=== PATIENT | female | born 1970 | race Caucasian/White ===

== ENCOUNTER 2021-12-12 12:24 | Emergency (ER) | payer OTHER, SELFPAY ==
--- NOTE | ~2021-12-12 | CT_ITS ---
EXAMINATION: CT abdomen pelvis w con DATE: 12/12/2021 15:17 INDICATION: Right upper quadrant abdominal pain. TECHNIQUE: Computed tomography (CT) of the abdomen and pelvis was performed with 100 mL Omnipaque-350 intravenous contrast. Automated exposure control and iterative reconstruction technique were employe d. The dose-length product was 1420.99 mGy-cm. COMPARISON: None FINDINGS: Lung bases are clear. Small sliding-type hiatal hernia. There is mural calcification at the fundus of the gallbladder with more peripheral small phrygian cap. There is altered diffuse irregular wall thi ckening of the gallbladder which is nondistended and there is no significant pericholecystic inflamma tory stranding. Constellation of findings would favor chronic cholecystitis. There is ill-defined dec reased hepatic attenuation along the gallbladder fossa which could represent either focal fat or wes a/inflammation related to the adjacent gallbladder. Spleen, pancreas, bilateral adrenal glands and ki dneys are normal. The appendix is not visualized. No pericecal inflammatory change to suggest acute a ppendicitis. Diffuse mild fatty infiltration of the colonic wall likely related to body habitus. No b owel obstruction. Bladder, anteverted uterus and bilateral adnexa are unremarkable. No free intraperi toneal gas or fluid. No pathologically enlarged abdominal or pelvic lymphadenopathy. Chronic mild ant erior wedging at T11. Mild to moderate lower thoracic and moderate to severe lumbosacral spondylosis with minimal intervening lumbar spondylosis. IMPRESSION: 1. Relatively diffuse irregular wall thickening as well as some mural calcification of the nondilated gallbladder/without surrounding pericholecystic inflammatory stranding which would be most consisten t with chronic cholecystitis. Reviewed, dictated and finalized at location B. IMPRESSION: 1. Relatively diffuse irregular wall thickening as well as some mural calcifica tion of the nondilated gallbladder/without surrounding pericholecystic inflamma tory stranding which would be most consistent with chronic cholecystitis.
[2021-12-12 12:51] VITALS: BP 161/109; PULSE 79; RESP 17; TEMP 37.2; O2SAT 100
[2021-12-12 14:07] VITALS: BP 161/112; PULSE 83; RESP 18; O2SAT 99
[2021-12-12 14:27] LABS: Appearance Urine Clear (Clear); Bilirubin Urine Negative (Negative); Blood Urine Trace-lysed (Negative); Color Urine Yellow (Yellow); Glucose Urine UA Negative (Negative); Ketones Urine Negative (Negative); Leukocyte Esterase Ur Negative LEU/UL (Negative); Nitrate Urine Negative (Negative); Protein Urine Negative (Negative); Urobilinogen Urine 0.2 mg/dL (<2.0); pH Urine 5.5 (5.0-9.0)
[2021-12-12 14:31] LABS: Mucus Urine Rare /lpf; RBC Urine 0-2 /hpf (0-2); Squamous Epithelial Cell Urine Few /hpf (Few); WBC Urine 0-3 /hpf
[2021-12-12 14:32] LABS: Basophils Absolute Auto 0.1 K/mm3 (0.0-0.1); Basophils Percent Auto 0.5 % (0.2-1.2); Eosinophils Absolute Auto 0.1 K/mm3 (0-0.3); Hematocrit 43.3 % (37.0-47.0); Hemoglobin 13.9 g/dL (12.0-15.0); Immature Granulocyte Absolute 0.05 K/mm3 (0.00-0.031); Immature Granulocyte Percent A 0.4 % (0-0.5); Lymphocytes Absolute Auto 4.16 K/mm3 (0.9-3.2); Lymphocytes Percent Auto 29.2 % (18.3-44.2); Mean Corpuscular HGB Conc 32.1 g/dl (32-36); Mean Corpuscular Volume 90.2 fl (80-100); Mean Platelet Volume 9.8 fl (7.4-10.4); Monocytes Absolute Auto 0.7 K/mm3 (0.1-0.6); Monocytes Percent Auto 5.1 % (2.6-8.5); Neutrophils Absolute Auto 9.1 K/mm3 (1.3-6.7); Neutrophils Percent Auto 63.8 % (45.5-73.1); Platelet Count Result 415 k/mm3 (150-375); Red Cell Distribution Width 13.3 % (11.5-14.5); White Blood Count 14.2 K/mm3 (4.5-10.0)
[2021-12-12 14:34] LABS: Add Urine Microscopic? YES; Alanine Aminotransferase 34 U/L (6-35); Albumin Level 4.8 g/dL (3.5-5.1); Alkaline Phosphatase 167 U/L (38-126); Anion Gap 16 mmol/L (8-16); Aspartate Amino Transferase 36 U/L (14-36); Bilirubin,Total 0.6 mg/dL (0.2-1.3); Blood Urea Nitrogen 12 mg/dL (7-17); Calcium 9.8 mg/dL (8.4-10.2); Carbon Dioxide 25 mmol/L (22-30); Chloride 100 mmol/L (98-107); Estimated CRCL calculation 92 ml/min; Estimated Glomerular Filt Rate > 60; Glucose 105 mg/dL (65-110); Lipase 78 U/L (23-300); Potassium 4.1 mmol/L (3.4-5.0); Sodium 141 mmol/L (137-145)
--- NOTE | 2021-12-12 14:47 | ED.ABDPAIN ---
HPI - Abdominal Pain General Chief Complaint: Abdominal Pain Stated Complaint: right abdominal pain radiates to back Time Seen by Provider: 12/12/21 13:54 History of Present Illness HPI narrative: This is a 51-year-old female who denies significant past medical history, presenting to the emergency department complaining of right upper abdominal pain and back pain for the past week. She describes the pain as waves , 6 out of 10, somewhat improved with ibuprofen at home. She denies associated nausea, vomiting, dysuria, or chills. She denies recent trauma. Related Data Allergies Allergy/AdvReac Type Severity Reaction Status Date / Time No Known Allergies Allergy Mild Unverified 07/08/08 08:50 Review of Systems Review of Systems: CONSTITUTIONAL: Denies fever, chills, or sweats. EYES: Denies visual changes, redness, or discharge. ENT: Denies rhinorrhea, congestion, sore throat, or otalgia. CARDIOVASCULAR: Denies chest pain, palpitations, or edema. RESPIRATORY: Denies cough or dyspnea. GASTROINTESTINAL: Right upper quadrant abdominal pain denies nausea, vomiting, or diarrhea. GENITOURINARY: Denies dysuria or hematuria. SKIN: Denies rash or itching. MUSCULOSKELETAL: Back pain denies joint pain, or myalgia. NEUROLOGIC: Denies headache, numbness, dizziness, or weakness. PSYCHIATRIC: Denies anxiety or depression. Exam Narrative: GENERAL: Well-developed, well-nourished, and in no acute distress. HEAD: Normocephalic, atraumatic. EYES: PERRLA and EOMI. ENT: Nares clear, no rhinorrhea or epistaxis. Mucous membranes moist. Oropharynx without tonsillar hypertrophy exudate or other lesions. CHEST: Clear to auscultation. No respiratory distress. No wheezes rales or rhonchi HEART: Regular rate and rhythm. No murmur heard. Normal peripheral pulses. ABDOMEN: Soft, nontender, nondistended, normal active bowel sounds., Bilateral CVA tenderness to palpation, right greater than left EXTREMITIES: Normal range of motion. No edema. SKIN: Warm, dry, no rash. NEURO: No focal deficits. Alert and oriented x3. PSYCH: Normal mood and affect. Course Course Emergency Course: 17:29 -CT abdomen pelvis consistent with chronic cholecystitis with out acute inflammatory changes. Labs demonstrate mild white blood cell count elevation but otherwise unremarkable including a normal UA. Discussed patient with Dr. Haq, who agrees to see the patient in clinic next week. Discussed findings and recommendations with the patient who voiced understanding and is comfortable with the plan. She states her pain is improved. Discussed return and emergent precautions including signs/symptoms of acute cholecystitis, intractable vomiting and sepsis. All questions answered to her satisfaction. Vital Signs Vital signs: Vital Signs Temperature 98.9 F 12/12/21 12:51 Pulse Rate 79 12/12/21 12:51 Respiratory Rate 17 12/12/21 12:51 Blood Pressure 161/109 H 12/12/21 12:51 Pulse Oximetry 100 12/12/21 12:51 Oxygen Delivery Room Air 12/12/21 12:51 Temperature 98.9 F 12/12/21 12:51 Pulse Rate 55 L 12/12/21 17:54 Respiratory Rate 17 12/12/21 17:54 Blood Pressure 161/59 H 12/12/21 17:54 Pulse Oximetry 97 12/12/21 17:54 Oxygen Delivery Room Air 12/12/21 12:51 MDM - Abdominal Pain MDM Narrative Medical decision making narrative: Plan: Labs, imaging, pain control, reassess Differential Diagnosis Differential diagnosis: Likely acute appendicitis, calculus of kidney, diverticulitis, pancreatitis and other (Cholecystitis, UTI, pyelonephritis, metabolic abnormality, other) Lab Data Result diagrams: 12/12/21 14:10 12/12/21 14:10 Labs: Lab Results 12/12/21 12/12/21 12/12/21 Range/Units 12:57 14:10 14:10 WBC 14.2 H (4.5-10.0) K/mm3 RBC 4.80 (4.2-5.4) M/mm3 Hgb 13.9 (12.0-15.0) g/dL Hct 43.3 (37.0-47.0) % MCV 90.2 (80-100) fl MCH 29.0 (26-34) pg MCHC 32.1 (32-36) g/dl RDW
[2021-12-12 15:25] LABS: Troponin I < 0.012 ng/mL (0.000-0.034)
[2021-12-12] MEDS: oxyCODONE/ACETAMINOPHEN (*CRX) 5-325 MG TABLET 1 TABLET PO (17:50)
[2021-12-12 17:54] VITALS: BP 161/59; PULSE 55; RESP 17; O2SAT 97
== END 2021-12-12 17:56 | disposition home or self-care (01) ==
PROVIDERS: Emergency Medicine; Emergency Provider Preventive Medicine Aerospace Medicine
DX: K81.1 Chronic cholecystitis (principal)
CPT/HCPCS: 36415; 74177; 80053; 81001; 83690; 84484; 85025; 96365; 99284; A9270; J0131; Q9967

== ENCOUNTER 2021-12-16 09:01 | Outpatient (CLI) | payer OTHER, SELFPAY ==
--- NOTE | ~2021-12-16 | US_ITS ---
EXAMINATION: US right upper quadrant DATE: 12/16/2021 09:40 INDICATION: Right upper quadrant abdominal pain TECHNIQUE: Multiple grayscale and Doppler ultrasound images of the abdomen were obtained. COMPARISON: None FINDINGS: The collapsed portion of the pancreatic body is normal in appearance. The region of the pancreatic h ead and tail are obscured. Liver has normal contour, with a smooth surface. There is increased parenc hymal echogenicity and coarsened echotexture consistent with diffuse hepatic steatosis. No liver lesi on identified. No intrahepatic biliary duct dilation suspected. Portal venous flow was seen in the h epatopetal, normal direction and has normal Doppler waveform. Gallbladder is decompressed with wall l ikely shadow complex. The amount of shadowing appears greater than could be accounted for by the smal l amount of mural calcification evident on the prior CT suggesting internal gallstones. Common bile d uct measures 4.6 cm in diameter. Sonographic Casper sign was reported as positive by the catering assistant. Visualized portion of the inferior vena cava is normal. Visualized portion of the right kidney demo nstrates normal echogenicity and contour with no hydronephrosis. IMPRESSION: 1. Decompressed gallbladder with wall likely shadow complex likely due to combination of gallstones a s well as small amount of mural calcification as seen on prior CT. Sonographic Casper sign is positiv e however there is no dilation or significant fluid within the gallbladder to more specifically sugge st acute cholecystitis although differential would include acute cholecystitis superimposed over professor of theology flavio cholecystitis with scarred gallbladder preventing typical dilation. Reviewed, dictated and finalized at location A. X NETWORK SYSTEMS ADMINISTRATOR IMPRESSION: 1. Decompressed gallbladder with wall likely shadow complex likely due to combi nation of gallstones as well as small amount of mural calcification as seen on prior CT. Sonographic Casper sign is positive however there is no dilation or s ignificant fluid within the gallbladder to more specifically suggest acute chol ecystitis although differential would include acute cholecystitis superimposed over chronic cholecystitis with scarred gallbladder preventing typical dilation .
[2021-12-16 10:44] LABS: Alanine Aminotransferase 83 U/L (6-35); Albumin Level 4.6 g/dL (3.5-5.1); Alkaline Phosphatase 191 U/L (38-126); Amylase 74 U/L (30-110); Aspartate Amino Transferase 77 U/L (14-36); Bilirubin,Total 0.5 mg/dL (0.2-1.3); Lipase 88 U/L (23-300)
== END 2021-12-16 09:02 | disposition home or self-care (01) ==
PROVIDERS: Visit Provider Surgery
DX: K81.1 Chronic cholecystitis (principal); R93.5 Abnormal findings on diagnostic imaging of other abdominal regions, including retroperitoneum
CPT/HCPCS: 36415; 76705; 80076; 82150; 83690; 86850; 86900; 86901

== ENCOUNTER 2021-12-17 00:43 | Day surgery (SDC) | payer OTHER, SELFPAY ==
[2021-12-15 14:54] VITALS: BMI 36.6
--- NOTE | 2021-12-15 15:00 | PC.NURSE ---
Report to the Outpatient Waiting Room, entrance under the green pavilion located off [facility], at time 12:00 on date 12/17/21. Planned Procedure Time: 2:00. Time changes happen often and if your time is changed the preop area will call you the afternoon before. - You and your visitor will be asked to self-screen and do not enter if you have any COVID symptoms. - We encourage only one visitor and NO visitors under age 16 are allowed at this time. Your visitor will receive communication by the phone number that is given day of service. - The patient visitor is requested to social distance or may leave the building when not with patient due to restrictions. - A mask is OPTIONAL within the hospital. Patients may have clear liquids (water, carbonated beverages, clear teas, apple juice) until 3 hours prior to surgery (11:00) with a maximum of 20 ounces. - No food from midnight until time of surgery Take the following medications with a SIP of water the morning of surgery: PAIN PILL IF NEEDED Medications to discontinue per physician: N/A Date to take last dose: N/A Please no make-up, nail brit[place] virgin islander, hairspray, perfume, deodorant, or body powder the day of surgery. No jewelry (including any body piercings) or valuables the day of surgery, leave them at home. Please take a shower or bath the night before, or the morning of, surgery with an antibacterial soap (HIBICLENS). Wear comfortable, loose fitting clothing. - Jewelry must be removed prior to entering the operating room. Rings and piercings that are not removed may be cut off. - The hospital will not accept responsibility for valuables. - Please leave all valuables, including medications, at home the day of surgery. If you are going home after surgery, a licensed furniture delivery driver must drive you home. - NO public transportation without another adult. - We recommend that an adult stay with you for 24 hours following discharge. - We also recommend that you do not drive, make important decision, drink alcoholic beverages, or take any drugs that were not prescribed by your health care provider for at least 24 hours after your discharge time. Follow any additional instructions given to you from your surgeon. If you or anyone in your household have experienced Covid symptoms in the past week, please notify your surgeon or the nurse liaison at the phone number below for possible testing. Telephone instructions given to PT - ANA LAURA CHENG and asked if any additional questions and then verbalized understanding. Patient advised to call surgeon office or pre surgery nurse liaison [phone] if any additional questions.
[2021-12-17] VITALS (16 sets, daily range): BP systolic 117–178; BP diastolic 64–89; PULSE 51–82; RESP 12–23; TEMP 35.7–36.8; O2SAT 96–100
--- NOTE | 2021-12-17 11:14 | WPDHPUPDATE1 ---
History and Physical Update Update Date/Time: 12/17/21 11:14 History and Physical has been reviewed, including an updated exam of the patient. There are NO changes in the patient's condition. Risks, benefits, and alternatives have been discussed and questions answered. Patient agrees to proceed with procedure.
[2021-12-17] MEDS: ACETAMINOPHEN 500 MG TABLET 1000 MG PO (12:23)
[2021-12-17] MEDS: LACTATED RINGERS 1,000 ML 30 ML IV CONT ×2 (12:37→16:01)
[2021-12-17] MEDS: KETOROLAC 15 MG/ML VIAL (*BKC) IV PUSH (12:37)
--- NOTE | 2021-12-17 13:29 | P.PNAN_ITS ---
Anes - Initial Pre Proc Eval Procedure: Operation Date: 12/17/21 14:00 Proposed Procedures p Laparoscopic Cholecystectomy - Juwan Haq MD Date/Time: 12/17/21 13:29 Surgeon: Juwan Haq MD Pre Op Diagnosis: Chronic Cholecystitis Patient Data Age: 51 Gender: F Height: 1.7 m Weight: 106.4 kg Last Vital Signs Temp 35.9 C L 12/17/21 12:04 Pulse 82 12/17/21 12:04 Resp 16 12/17/21 12:04 BP 178/89 H 12/17/21 12:04 Pulse Ox 98 12/17/21 12:04 O2 Del Method Room Air 12/17/21 12:04 Allergies Allergy/AdvReac Type Severity Reaction Status Date / Time No Known Allergies Allergy Mild Verified 12/15/21 14:53 Home Medications Medication Instructions Recorded Confirmed Type acetaminophen 500 mg capsule 1,000 mg PO Q6H PRN pain #60 caps 12/12/21 12/17/21 Rx oxycodone-acetaminophen 5 mg-325 1 tablet PO Q8H PRN pain, severe 12/12/21 12/17/21 Rx mg tablet (Endocet) #9 tabs Patient hx anesthesia problems: none Family hx anesthesia problems: none Results Review: All pre-operative results and documents have been reviewed as part of the pre- operative evaluation. [facility] Past Medical History Medical History Hypertension Family History Family History Other Hypertension Social History Social History Smoking packs per day: 0.5 Smoking cigarettes per day: 10.0 Years smoked: 12 Smoking pack-years: 6.00 Smoking status: Former smoker Tobacco type: cigarettes Smoking end date: 02/08/18 Alcohol intake: never Substance use: never Substance use type: does not use Living arrangements: with family Spiritual care concerns: No Anes - Eval Final PreProcedure Day of Procedure 12/17/21 13:29 Patient weight: obese Heart: regular rate and rhythm Lungs: clear to auscultation Airway: Mallampati scale class II Neurological: alert and oriented Last oral intake: >/= 8 hours ASA classification: III Emergent: no Anesthetic plan: proceed Anesthesia type and monitoring: general ETT and standard monitoring Results Review: All pre-operative results and documents have been reviewed as part of the pre- operative evaluation. Informed Consent: The patient's anesthetic plan and its attendant risks and benefits were discussed with the patient/family/POA. Questions were solicited and answers provided to the satisfaction of the patient/family/POA.
--- NOTE | 2021-12-17 14:11 | SUR.PREOP ---
1410 pt informed of delay in procedure
[2021-12-17] MEDS: ceFAZolin 2 GM/D5W 50 ML 2 GM/50 ML BAG IVPB (14:38)
--- NOTE | 2021-12-17 15:32 | SUR.OPER ---
Two Frozen Sections sent to Pathology per JEN Fine. Received by Pathologist.
[2021-12-17] MEDS: fentaNYL CITRATE INJ (*CRX) 100 MCG/2 ML VIAL 25 MCG IV PUSH ×2 (16:56→17:02)
--- NOTE | 2021-12-17 16:56 | P.OP_ITS ---
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 CT scan and ultrasound had been done and suggested chronic cholecystitis. She remained very uncomfortable and is taken to surgery now for laparoscopic cholecystectomy. Findings The gallbladder was decompressed and indented into the liver with a stellate scar. There were dense adhesions of the omentum to the gallbladder. There were irregular nodules on and around the gallbladder. These were biopsied and sent for frozen section which showed adenocarcinoma of the gallbladder. Description of Procedure The patient was taken to surgery and induced into general anesthesia. The abdomen is prepped and draped. Trocars were placed in the usual fashion using applied Medical optical trocars and local anesthetic. The gallbladder was reviewed. It had a very abnormal appearance. It appeared to be socked into the liver and decompressed. There were dense omental adhesions to the gallbladder and a stellate scar on the surface of the liver around the gallbladder. I 1st tried to elevate the fundus of the gallbladder. There was some tearing just below this. Purulent fluid came forth. This was quickly suctioned away. A few gallstones were seen. These were removed from the abdominal cavity and sent as gallstones. I tried taking some of the omental adhesions down and noticed some very irregular gallbladder tissue both in the wall of the gallbladder as well as around the gallbladder. Several pieces of this including part of the gallbladder wall was excised and sent for frozen section. Dr. Burgess, pathologist, called to the room and confirmed my suspicions that this was adenocarcinoma of the gallbladder. I tried to put a right angle clamp into the lumen of the gallbladder but there was really no lumen in the area of the tear. No bile was leaking. The fundus of the gallbladder above the tear was still quite attached. I let it lay over the torn area of the gallbladder. The body and infundibulum of the gallbladder were not approached. A 19 [place] John drain was passed through the right lower quadrant trocar and into the subhepatic space. It was sutured to the skin with 2-0 silk. I then he closed the fascia at the 10 11 epigastric trocar site with an 0 Vicryl suture. We evacuated CO2 and removed the trocar sleeves. Skin wounds were closed with subcuticular 4-0 Monocryl skin suture. The wounds were dressed with Exofin surgical adhesive. The patient was awakened and taken to recovery in good condition. Sponge and needle counts were correct x2. Estimated Blood Loss -10 Drains Yes (Nineteen Togolese John BRIAN drain right upper quadrant) Packing No Pathology Yes (Gallbladder wall and nodules around gallbladder) Complications No immediate complications Condition Stable Disposition PACU [facility] Billing Surgery - Charge Forward: Surgery Billing (Laparoscopic biopsy of gallbladder)
--- NOTE | 2021-12-17 18:02 | SUR.PHASEI ---
1715 - pt to op recovery to wait for room availability. pt resting. denies need for pain medication at this time. vss 1735 - pt's family in room with pt. 1745 - dr. garcía in pt's room speaking with patient and pt's family
[2021-12-17] MEDS: oxyCODONE HCL (*CRX) 5 MG TAB IR PO (18:29)
[2021-12-17] MEDS: HYDROcodone/acetaminophen (*CRX) 10-325 MG TABLET 1 TAB PO (21:18)
[2021-12-17] MEDS: FAMOTIDINE 20 MG TABLET PO (21:20)
--- NOTE | 2021-12-17 21:39 | ADMGEN ---
This patient, Cristal Garcia, was admitted to Medical Room 342-01. Patient/family oriented to hospital policies and general routines including ID bracelet, bed and alarms, visiting hours, pain management, procedures, bathroom and other care routines, personal items, smoking policy, room service/diet, and visiting hours. Information on how to activate the Rapid Response Team has been discussed. Patient/Family are encouraged to report perceived risks to care and to ask questions if they do not understand what they are told or what they should do.
[2021-12-18] MEDS: HYDROcodone/acetaminophen (*CRX) 5-325 MG TABLET 1 TAB PO ×2 (01:14→08:34)
[2021-12-18 01:48] VITALS: BP 122/62; PULSE 56; RESP 16; TEMP 36.7; O2SAT 98
[2021-12-18 05:17] LABS: Hematocrit 38.5 % (37.0-47.0); Hemoglobin 12.1 g/dL (12.0-15.0); Mean Corpuscular HGB Conc 31.4 g/dl (32-36); Mean Corpuscular Hemoglobin 28.2 pg (26-34); Mean Corpuscular Volume 89.7 fl (80-100); Mean Platelet Volume 10.4 fl (7.4-10.4); Platelet Count Result 385 k/mm3 (150-375); Red Blood Count 4.29 M/mm3 (4.2-5.4); Red Cell Distribution Width 13.4 % (11.5-14.5); White Blood Count 14.9 K/mm3 (4.5-10.0)
[2021-12-18 05:30] LABS: Alanine Aminotransferase 137 U/L (6-35); Albumin Level 4.2 g/dL (3.5-5.1); Alkaline Phosphatase 183 U/L (38-126); Anion Gap 10 mmol/L (8-16); Aspartate Amino Transferase 93 U/L (14-36); Bilirubin,Total 0.4 mg/dL (0.2-1.3); Blood Urea Nitrogen 16 mg/dL (7-17); Calcium 9.1 mg/dL (8.4-10.2); Carbon Dioxide 24 mmol/L (22-30); Chloride 105 mmol/L (98-107); Estimated CRCL calculation 93 ml/min; Estimated Glomerular Filt Rate > 60; Glucose 135 mg/dL (65-110); Potassium 4.6 mmol/L (3.4-5.0); Sodium 139 mmol/L (137-145)
[2021-12-18 05:48] VITALS: BP 118/54; PULSE 54; RESP 16; TEMP 36.8
--- NOTE | 2021-12-18 07:57 | WPDANESPN ---
Anes - Prog Note Post-Op Date/Time: 12/18/21 07:57 Cardiovascular status: normal Respiratory status: normal Airway patency: baseline Mental status: baseline Post-Op hydration status: normal Vital Signs: Last Vital Signs Temp 36.8 C 12/18/21 05:48 Pulse 54 L 12/18/21 05:48 Resp 16 12/18/21 05:48 BP 118/54 L 12/18/21 05:48 Pulse Ox 98 12/18/21 01:48 O2 Del Method Room Air 12/17/21 20:00 O2 Flow Rate 6 12/17/21 16:45 Pain Score (VAS): 04/17 I/O: Intake & Output 12/17/21 12/17/21 12/18/21 15:59 23:59 07:59 Intake Total 50 200 300 Output Total 465 750 Balance 50 265 450 Laboratory Tests 12/18/21 04:39 12/18/21 04:39 12/18/21 12/18/21 04:39 04:39 WBC 14.9 H RBC 4.29 Hgb 12.1 Hct 38.5 MCV 89.7 MCH 28.2 MCHC 31.4 L RDW 13.4 Plt Count 385 H MPV 10.4 Sodium 139 Potassium 4.6 Chloride 105 Carbon Dioxide 24 Anion Gap 10 BUN 16 Creatinine 0.80 Estim Creat Clear Calc 93 Estimated GFR > 60 Glucose 135 H Calcium 9.1 Total Bilirubin 0.4 AST 93 H ALT 137 H Alkaline Phosphatase 183 H Total Protein 8.0 Albumin 4.2 Post-procedural complaints: none Patient Feedback: Patient satisfied with anesthetic care.
--- NOTE | 2021-12-18 08:15 | PM.DS ---
DS: Admitting Diagnosis Discharge Date 12/18/2021 Admitting Diagnosis chronic cholecystitis DS: Discharge Diagnosis Discharge Diagnosis (1) Gallbladder cancer, carcinoma: Code(s): C23 - Malignant neoplasm of gallbladder Status: Acute (2) Right upper quadrant abdominal pain: Code(s): R10.11 - Right upper quadrant pain Status: Acute DS: Summary Hospital Course Hospital Course: patient was in our emergency room on 12/12/2021. She was having back and right upper quadrant pain for [address] scan did not show gallstones but was suggestive of chronic cholecystitis. Patient was seen in the office on 12/15/2021. She was very uncomfortable. She was scheduled for surgery on 12/17/2021 for cholecystectomy. An ultrasound done on 12/16/2021 showed a positive Casper sign and evidence of chronic cholecystitis. She was taken to surgery on 12/17/2021. The gallbladder had a very abnormal appearance and was sunken into the liver with dense omental adhesions. Biopsies of the gallbladder were taken and frozen section showed adenocarcinoma of the gallbladder. The gallbladder was not removed. A right upper quadrant drain was placed and the laparoscopic surgery was concluded. Dr. Haq discussed the findings with the patient, her , and her parents. Dr. Haq also called Dr. Ann Nance, an hepatobiliary surgeon at [facility]. Dr. Nance will see the patient in her office next week. patient will be called to arrange this. Patient was observed overnight. There was no bile draining from the BRIAN drain. She was comfortable on oral analgesics and able to be discharged in good condition. Status at Discharge Functional status at discharge: independent ambulation Overall status at discharge: patient is progressing back to baseline Time Spent with Patient Time attestation: Total time spent providing and/or coordinating discharge services: Time spent: Less than 30 minutes Exam Const: General: cooperative, no acute distress, alert and awake GI: Inspection: non-distended and incision ( Incisions dry and intact, BRIAN drains serosanguineous) GI Palp: Yes Soft to palpation and Yes Tenderness to palpation present (GI) Auscultation: normal bowel sounds DS: Data Data Completed and Pending Pending studies at discharge: Pending at discharge 12/17/21 15:23 Surgical [PTH] Routine 12/17/21 15:29 Surgical [PTH] Routine 12/17/21 15:52 Surgical [PTH] Routine Labs on day of discharge: Labs from last 24 hours 12/18/21 12/18/21 04:39 04:39 WBC 14.9 H RBC 4.29 Hgb 12.1 Hct 38.5 MCV 89.7 MCH 28.2 MCHC 31.4 L RDW 13.4 Plt Count 385 H MPV 10.4 Sodium 139 Potassium 4.6 Chloride 105 Carbon Dioxide 24 Anion Gap 10 BUN 16 Creatinine 0.80 Estim Creat Clear Calc 93 Estimated GFR > 60 Glucose 135 H Calcium 9.1 Total Bilirubin 0.4 AST 93 H ALT 137 H Alkaline Phosphatase 183 H Total Protein 8.0 Albumin 4.2 Discharge Plan Discharge Patient Disposition: Home, Self-Care Discharge Instructions: empty BRIAN drain at least daily and record output in mL. Keep daily 24 hour drain outputs in mL on the record and bring this record to Dr. Hansen office on Wednesday. Diet as tolerated, regular food okay ambulate at least 3-4 times per day may remove dressing over BRIAN drain and shower. Replace dressing after. Stairs are okay. May drive a car on Wednesday. No lifting over 15 lb. Call for severe pain, temperature over 101, bleeding, or other change in condition. Stand Alone Forms: General Discharge Instructions Follow-up/Referrals: Juwan Haq MD [Physician] - 12/22/21 ( Call Dr. Hansen office to make appointment) Discharge Medications: New oxycodone-acetaminophen [Percocet] 5-325 mg tablet 1 - 2 tablet PO Q6H PRN (Reason: pain) Qty: 30 0RF ibuprofen 600 mg tablet 600 mg PO Q6H PRN (Reason: pain) Qty: 14 0RF
[2021-12-18] MEDS: ENOXAPARIN 40 MG/0.4 ML SYRINGE SUB-Q (08:33)
[2021-12-18] MEDS: FAMOTIDINE 20 MG TABLET PO (08:33)
== END 2021-12-18 10:41 | disposition home or self-care (01) ==
LOC: ANHSURGERY 11:51 → ANH3MED 20:35
PROVIDERS: Visit Provider Surgery
PROC: 0FT44ZZ Resection of Gallbladder, Percutaneous Endoscopic Approach (ICD-10-PCS; CPT 47562; principal; 2021-12-17 14:00)
DX: C23 Malignant neoplasm of gallbladder (principal); K80.80 Other cholelithiasis without obstruction; K66.0 Peritoneal adhesions (postprocedural) (postinfection); Z87.891 Personal history of nicotine dependence; E66.9 Obesity, unspecified; Z68.36 Body mass index [BMI] 36.0-36.9, adult
CPT/HCPCS: 47579; 36415; 80053; 82365; 85027; 88300; 88304; 88305; 88331; 88342; A9270; C1713; J0690; J1100; J1170; J1650; J1885; J2250; J2405; J2704; J2710; J3010; J7120